=== PATIENT | male | born 1985 | race African-American/Black ===

== ENCOUNTER 2017-01-20 12:27 | Emergency (ER) | payer OTHER ==
--- NOTE | ~2017-01-20 | US115 ---
[facility] A Service of [facility] RADIOLOGY TEXT RESULTS PATIENT: AVELINA AWAD LOCATION: JODEE : 87 UNIT #: [id number] AGE: [address]: Marie Schulte MD SEX: M ORDER DR: [id number] [place], [place] [address] [id number] MR#: [id number] Acc #: [id number] NAME: AVELINA AWAD : 1985 SEX: M STUDY DATE/TIME: 01/20/2017 11:34 UNIT: JODEE ROOM: STUDY DESCRIPTION: US Scrotum and Contents Attending Physician: Marie Schulte M.D. Ordering Physician: Marie Schulte M.D. Primary Care Physician: No Primary Care Physician MEDICAL IMAGING REPORT This report is preliminary unless electronic signature is present EXAM Scrotal ultrasound HISTORY 31-year-old male with right testicular pain and swelling since yesterday. FINDINGS Real-time examination demonstrates the testicles to be of normal size shape and echogenicity. No intratesticular mass lesion is identified. Normal Doppler flow within the testicles. The right epididymis is enlarged with increased flow. In the appropriate setting this would be compatible with acute epididymitis. Left epididymis appears normal. There is small bilateral hydroceles. IMPRESSION 1. Abnormal testicular ultrasound demonstrating an enlarged hyperemic right epididymis. In the appropriate setting this would be most compatible with acute epididymitis. 2. Testicles appear normal. 3. Small bilateral hydroceles Dictated by... Rancho العلي M.D. THIS IS AN ELECTRONICALLY VERIFIED REPORT Rancho العلي M.D. at 01/21/2017 12:27 PM MARIBETH/anatoliy TD: 01/20/2017 14:07 JOB #: [id number] MEDICAL IMAGING REPORT [facility] [place] [facility] TEXT RESULTS PATIENT: AVELINA AWAD LOCATION: JODEE : 87 UNIT #: [id number] AGE: [address]: Marie Schulte MD SEX: M ORDER DR: Page 1 of 1 COPY
[2017-01-20 11:28] LABS: URINE SOURCE CLEAN CATCH
[2017-01-20 12:23] LABS: URINE APPEARANCE CLEAR; URINE COLOR YELLOW
[2017-01-20 12:24] LABS: CULTURE INDICATED? NO; URINE BILIRUBIN NEG (NEG); URINE BLOOD NEG (NEG); URINE GLUCOSE NORM (NEG); URINE ICTOTEST NEG (NEG); URINE KETONE NEG (NEG); URINE LEUKOCYTE ESTERASE NEG (NEG); URINE NITRATE NEG (NEG); URINE PROTEIN NEG (NEG); URINE UROBILINOGEN NORM (NEG)
[2017-01-21 19:15] LABS: CHLAMYDIA TRACH Not Detected (Not Detected); N GONOR Not Detected (Not Detected)
== END 2017-01-20 13:51 | disposition home or self-care (01) ==
LOC: CED 12:27
PROVIDERS: Emergency Medicine
DX: N45.1 Epididymitis (principal)
CPT/HCPCS: 76870; 81003; 87491; 87591; 93976; 96372; 99284; J0696

== ENCOUNTER 2017-01-20 22:52 | Emergency (ER) | payer OTHER | END 2017-01-20 23:00 | disposition home or self-care (01) | LOC: CFTX 22:52 | DX: Z76.0 Encounter for issue of repeat prescription (principal); N45.1 Epididymitis | CPT/HCPCS: 99282 ==

== ENCOUNTER 2017-01-21 08:50 | Inpatient (IN) | payer OTHER ==
--- NOTE | ~2017-01-21 | CO ---
Unit #: [id number] #: [id number] Patient: AVELINA AWAD [id number] [address] [place], [place] [address] [id number] MR#: [id number] NAME: AVELINA AWAD ROOM: [facility] Age: 31 Sex: M Admission Date: 01/21/2017 : 1985 Attending Physician: Iliana Lopez M.D. Primary Care Physician: Primary Care Physician No Consultation Date: 01/22/2017 CONSULTATION REPORT CHIEF COMPLAINT Right testicular pain and swelling. HISTORY OF PRESENT ILLNESS This 31-year-old man was admitted yesterday with a 4-day history of right testicular pain, swelling and subjective fever. He has been extensively evaluated by Medicine and seen by Infectious Diseases with diagnosis of right epididymitis. He has had similar presentations in the past since the age of 10 years, every 3 to 5 years, although also in 2015 and 2016, he had milder cases. It is always occurred on the right, typically have been slow to resolve with treatment. He has had no dysuria, acute voiding symptoms or history of voiding symptoms. He has a strong stream and no history of stricture. He has no chronic medical illnesses. He has had no gross hematuria or stone disease. Remainder of workup as below. PAST MEDICAL HISTORY No chronic illnesses. PAST SURGICAL HISTORY Leg fracture. MEDICATIONS None chronically. He has been treated with Levaquin and ceftriaxone on this admission with plans to discharge on doxycycline per Infectious Diseases. ALLERGIES None known. FAMILY HISTORY Noncontributory. SOCIAL HISTORY Does not smoke, use alcohol or drugs. REVIEW OF SYSTEMS Include single episode of diarrhea and no drainage from penis. Otherwise negative. PHYSICAL EXAMINATION GENERAL: The patient is resting in bed. Unit #: [id number] #: [id number] Patient: AVELINA AWAD VITAL SIGNS: He is afebrile with vital signs, although he initially had a temperature of 99.2 degrees this morning. ABDOMEN: Thin, soft, nontender. No masses, hernias or scars. : Phallus normal, circumcised testes and epididymides descended bilaterally with a visually obvious enlargement of the right hemiscrotal contents. The epididymis and testicle are mildly diffusely enlarged with firmness and moderately severe tenderness of the left epididymis. Minimal erythema. No cellulitis. No fluctuance or warmth. DIAGNOSTIC STUDIES LABORATORY RESULTS: Unremarkable CBC and BMP. HIV, GC, chlamydia, all negative. IMAGING STUDIES: X-ray and scrotal ultrasound shows right epididymal enlargement and hyperemia. No evidence of testicular abnormality or abscess. IMPRESSION 1. Acute recurrent right epididymitis. 2. Slow improvement with current therapy. 3. No correctable underlying predisposing factors. Recommend discharge antibiotics per Infectious Disease for 10 days should be sufficient. Happy to follow with you and we will offer outpatient followup in 2 to 4 weeks. Thank you, Gurinder, for the consultation. Dictated by... Kaushik Ewing M.D. JEFFY/valentina TD: 01/23/2017 03:26 JOB #: [id number] CONSULTATION REPORT Page 1 of 1 X Kaushik Ewing MD X CONSULTATION REPORT
--- NOTE | ~2017-01-21 | DS ---
Unit #: [id number] #: [id number] Patient: AVELINA AWAD [id number] [address] [address] [id number] MR#: [id number] NAME: AVELINA AWAD ROOM: [facility] Age: 31 Sex: M Admission Date: 01/21/2017 : 1985 Discharge Date: 01/23/2017 Attending Physician: Gurinder Freeman M.D. DISCHARGE SUMMARY REASON FOR ADMISSION Scrotal cellulitis/acute epididymitis. HISTORY OF PRESENT ILLNESS/HOSPITAL COURSE The patient was admitted for the same. Relatively healthy 31-year-old male, who has had recurrent episodes ever since his childhood. We placed him on Rocephin as well as IV Levaquin while he was here. Consultations were placed both to Urology Service as well as Infectious Disease Services. Urology Services did not recommend further incision and drainage. They recommended outpatient p.o. antibiotics with close outpatient followup. ID services recommended p.o. doxycycline at the time of discharge, therefore he will be given prescriptions for doxycycline 100 mg p.o. b.i.d. x10 days as well as hydrocodone. He will follow up with Dr. Ewing in approximately 2 weeks. FINAL DISCHARGE DIAGNOSES 1. Acute epididymitis. 2. Scrotal cellulitis. FINAL DISCHARGE MEDICATIONS Doxycycline 100 mg p.o. b.i.d. x10 days and Stites 5/325 one tablet p.o. q.6 p.r.n., #[address] Ewing. Dictated by... Sonny ChavisN/valentina TD: 01/23/2017 23:24 JOB #: [id number] Unit #: [id number] #: [id number] Patient: AVELINA AWAD DISCHARGE SUMMARY Page 1 of 1 X Gurinder Freeman MD DISCHARGE SUMMARY
--- NOTE | ~2017-01-21 | CO ---
Unit #: [id number] #: [id number] Patient: AVELINA AWAD [id number] [address] [place], [place] [address] [id number] MR#: [id number] NAME: AVELINA AWAD ROOM: 466 Age: 31 Sex: M Admission Date: 01/21/2017 : 1985 Attending Physician: Iliana Lopez M.D. Primary Care Physician: No Primary Care Physician Consultation Date: 01/22/2017 CONSULTATION REPORT The patient is admitted to Dr. Iliana Lopez. REASON FOR CONSULTATION Antibiotic management. HISTORY OF PRESENT ILLNESS This is a 31-year-old male who has no significant past medical history, who was experiencing testicular pain for the last four days. The patient initially went to the emergency room but was sent home; however, came back due to intractable pain and was further admitted. In discussion with the patient, he reports that he had some fever at home. He continues to have pain in his right greater than left testicle with some discomfort with ambulation. In discussion with patient, he reports that this has happened to him before. He says this originally started when he was 10 years old and intermittently happens every three to five years. The patient has been treated with oral antibiotics in the outpatient setting when this has happened. The patient now is awaiting on urology evaluation. He has been started on ceftriaxone and infectious disease was asked to evaluate. In discussion with the patient, he reports that he has no penile drainage. He has no discomfort with urination and he has no open wounds or sores. PAST MEDICAL HISTORY Negative. PAST SURGICAL HISTORY Includes a broken leg, status post repair. ALLERGIES No known allergies. MEDICATIONS The patient is currently on ceftriaxone. For other medications, please refer to patient's MAR. SOCIAL HISTORY Occasional alcohol abuse. No tobacco abuse. No other drug use. REVIEW OF SYSTEMS The patient does report some fever at home but no significant chills or sweats. He denies any shortness of breath, chest pain, nausea, vomiting. He has diarrhea x1 today. He has no pain with urination. He denies any drainage from his penis. He denies any edema in his lower extremities. PHYSICAL EXAMINATION Unit #: [id number] #: [id number] Patient: AVELINA AWAD VITAL SIGNS: Temperature is 99.2, pulse 72, blood pressure 115/60, respiratory rate is 18. GENERAL: This no apparent distress male is currently resting in the bed with his family member. HEENT: His pupils are equal. NECK: His neck is supple. CARDIOVASCULAR: S1, S2. Regular rate and rhythm. PULMONARY: Clear to auscultation bilaterally with no wheezes or rhonchi noted. ABDOMEN: Positive bowel sounds. Soft and nontender. EXTREMITIES: No clubbing, cyanosis, or edema. GENITAL EXAM: Reveals right greater than left testicular swelling without any open wounds or draining abscesses. DIAGNOSTIC STUDIES LABORATORY: BUN 13, creatinine 1.3, sodium 139, potassium 3.8, chloride 108, CO2 of 25. White blood cell count 8.2, hemoglobin 11.4, hematocrit 36.4, platelets 189,000. Gonorrhea and Chlamydia negative. HIV is nonreactive. Urinalysis is unremarkable. IMAGING: Shows an ultrasound of the scrotum with abnormal testicular ultrasound demonstrating enlarged hyperemic right epididymis consistent with acute epididymitis. Testicles are normal. Small bilateral hydroceles. There is no microbiology data. IMPRESSION This is a 31-year-old male who has had acute epididymitis several times in the past, beginning when he was 10 years old and it reoccurs every three to five years. The patient has a negative Gonorrhea and Chlamydia swab, negative HIV test, negative urinalysis. At this time, agree with ceftriaxone for acute epididymitis and will await evaluation for any further intervention. Patient may be able to discharge home on p.o. Levaquin. This case will be discussed with Dr. Arben Hernandez who will evaluate this patient today. Thank you for allowing us to participate in the care of this patient. Further recommendations to follow pending patient's clinical course. Dictated by... Nathalia ArreagaRLeannN. for Sonny Jeffries/sara TD: 01/22/2017 12:05 JOB #: [id number] Unit #: [id number] #: [id number] Patient: AVELINA AWAD CONSULTATION REPORT Page 1 of 1 X X CONSULTATION REPORT
--- NOTE | ~2017-01-21 | HP ---
Unit #: [id number] #: [id number] Patient: AVELINA AWAD [id number] [address] [place], [place] [address] [id number] MR#: [id number] NAME: AVELINA AWAD ROOM: [facility] Age: 31 Sex: M Admission Date: 01/21/2017 : 1985 Attending Physician: Iliana Lopez M.D. HISTORY AND PHYSICAL REASON FOR ADMISSION Transfer from outside facility secondary to enlarged right testicle. HISTORY OF PRESENT ILLNESS The patient is a 31-year-old male with a relatively unremarkable past medical history, who presented initially to [facility]. He was evaluated initially for increased and/or discomfort in his right testicle. Earlier in the day, he was discharged home. I am unclear on discharge regimen and subsequently developed increased pain and/or discomfort. Drove himself over to [facility] and subsequently was seen and evaluated there and subsequently, decision was made secondary to intractable pain for transfer to [facility] for further evaluation. PAST MEDICAL HISTORY None. PAST SURGICAL HISTORY Prior history of broken leg, status post repair. ALLERGIES No known drug allergies. HOME MEDICATIONS None. SOCIAL HISTORY Social alcohol use. No tobacco use. No illicit drug use. REVIEW OF SYSTEMS Please see HPI. Twelve point otherwise negative except for those positive noted in the HPI. PHYSICAL EXAMINATION VITAL SIGNS: Temperature in outside facility 101.4, blood pressure 133/81, pulse 83. GENERAL APPEARANCE: The patient is a pleasant 31-year-old male, alert, no acute distress. HEENT: Head; atraumatic, normocephalic. Eyes; pupils equal, round, and reactive to light NECK: Supple. Trachea midline. No tenderness. CVS: S1, S2 without murmur. RESPIRATORY: Clear. No evidence of any wheezes, rales, or rhonchi. Unit #: [id number] #: [id number] Patient: AVELINA AWAD GI/ABDOMEN: Nontender and nondistended. EXTREMITIES: Lower extremity, no evidence of lower extremity edema. GENITOURINARY: Does reveal moderate swelling in the scrotal area with right testicle, questionable mass which is tender, warm consistent with cellulitis and possible questionable abscess. PSYCHIATRIC: The patient demonstrates normal, cooperative, appropriate mood and affect. ER course at outside facility, the patient received Zosyn IV as well as symptom management with pain control and was transferred. DIAGNOSTIC STUDIES LABORATORY RESULTS: Labs at outside facility include a potassium of 3.6. Electrolytes within normal limits. Creatinine 1.10. LFTs normal. White count 10.6, hemoglobin 12.0. INITIAL IMPRESSION 1. Acute scrotal cellulitis/possible abscess versus epididymitis. 2. Intractable pain. PLAN Admission consultation to Urology, was start IV Rocephin and pain control. Blood cultures have already been drawn at outside facility. We will follow up further intervention include possible surgical I and D and/or management after review and evaluation by Urology Services. Dictated by Sonny Chavis/valentina TD: 01/21/2017 22:51 JOB #: [id number] HISTORY AND PHYSICAL Page 1 of 1 X Gurinder Freeman MD X HISTORY AND PHYSICAL
[2017-01-22 03:44] LABS: HEMATOCRIT 36.4 % (38.0-50.0); HEMOGLOBIN 11.4 gm/dL (13.0-16.0); MEAN CELL VOLUME 87.6 FL (83-96); MEAN CORPUSCULAR HEMOGLOBIN 27.4 PG (28-34); MEAN CORPUSCULAR HGB CONC 31.3 g/dL (30-36); MEAN PLATELET VOLUME 10.2 FL (6.5-11.5); RED BLOOD COUNT 4.15 X10e (3.90-5.60); RED CELL DISTRIBUTION WIDTH 13.3 % (11.0-15.5); WHITE BLOOD COUNT 8.2 X10e3 (4.0-10.5)
[2017-01-22 04:20] LABS: CALCIUM SERUM 8.4 mg/dL (8.4-10.2); CREATININE SERUM 1.3 mg/dL (0.6-1.4); GLOM FILT RATE Estimated 85.5 mL/min (>60); POTASSIUM 3.8 mmol/L (3.5-5.1)
[2017-01-23] MEDS ORDERED: APAP325 M1 PO (09:48)
[2017-01-23] MEDS ORDERED: HYDROCODON-ACE1 EAC7 PO (09:49)
[2017-01-23] MEDS ORDERED: DOXYCYCLINE PO (09:50)
[2017-01-23 19:54] LABS: CHLAMYDIA TRACH Not Detected (Not Detected); N GONOR Not Detected (Not Detected)
== END 2017-01-23 12:00 | disposition home or self-care (01) | DRG 728 ==
LOC: C4C 08:50
PROVIDERS: Family Medicine
DX: N45.1 Epididymitis (principal); G89.29 Other chronic pain; N49.2 Inflammatory disorders of scrotum
CPT/HCPCS: 80048; 83036; 84443; 85027; 87491; 87591; 87806; J0696; J1956; J2270